=== PATIENT | male | born 1965 | race Caucasian/White ===

== ENCOUNTER 2016-12-26 23:44 | Emergency (ER) | payer OTHER ==
[~2016-12-26] VITALS: Ht 188 cm; Wt 96.7 kg
[~2016-12-26 23:44] MED LIST: CEPH500C3 PO; Z.0.NO CURRENT MEDS
[2016-12-26 23:48] VITALS: BP 203/108; PULSE 72; RESP 16; TEMP 98.3; O2SAT 98
--- NOTE | 2016-12-27 00:11 | PD ---
HPI Chief Complaint: Back/ Neck Pain or Injury Time Seen by Provider: 23:56 Travel History International Travel<30 days: No Contact w/Intl Traveler<30days: No Traveled to known affect area: No History of Present Illness HPI This is a 51-year-old male who presents to the emergency department with severe pain starting in his right upper back radiating to the neck and down his right arm feeling numbness and tingling down his right arm, constant ever since the middle the day today. He says the pain makes him nauseous and sweaty. He's never had pain like this before. He was moving furniture several days ago but his pain started just today. His daughter is a massage therapist and tried to help him but his pain is only getting worse and he's been very fidgety and uncomfortable. PFSH Past Medical History Medical History: Denies Significant Hx Diminished Hearing: No Tetanus Vaccination: > 5 Years Influenza Vaccination: No Past Surgical History Other Surgery: Yes (left thumb reattachment) Social History Alcohol Use: No Tobacco Use: Yes (1 PPD) Substance Use: No Allergies-Medications (Allergen,Severity, Reaction): Coded Allergies: No Known Allergies (Verified , 12/26/16) Reported Meds & Prescriptions Reported Meds & Active Scripts Active Review of Systems Except as stated in HPI: all other systems reviewed are Neg Physical Exam Narrative GENERAL: Uncomfortable appearing. SKIN: Focused skin assessment warm and dry. HEAD: Atraumatic. Normocephalic. EYES: Pupils equal and round. No injection or drainage. ENT: Moist mucous membranes NECK: Trachea midline. CARDIOVASCULAR: Regular rate and rhythm. No murmur appreciated. 2+ bilateral radial pulses with normal capillary refill. RESPIRATORY: Clear to auscultation. Breath sounds equal bilaterally. GASTROINTESTINAL: Abdomen soft, non-tender, nondistended. MUSCULOSKELETAL: Tender to palpation over the right trapezius muscle NEUROLOGICAL: Awake and alert. No obvious cranial nerve deficits. Moving all extremities. PSYCHIATRIC: Appropriate mood and affect; insight and judgment normal. Data Data Last Documented VS Vital Signs Date Time Temp Pulse Resp B/P (MAP) Pulse Ox O2 Delivery O2 Flow Rate FiO2 12/27/16 01:44 18 12/26/16 23:48 98.3 72 203/108 (139) 98 Orders Orders Complete Blood Count With Diff (12/27/16 00:04) Comprehensive Metabolic Panel (12/27/16 00:04) Electrocardiogram (12/27/16 ) Troponin I (12/27/16 00:04) Cta Thor Abd Aorta W Iv C W3d (12/27/16 ) Morphine Inj (Morphine Inj) (12/27/16 00:15) ^ Insert Iv (12/27/16 00:04) Iohexol 350 Inj (Omnipaque 350 Inj) (12/27/16 00:48) Morphine Inj (Morphine Inj) (12/27/16 01:00) Ketorolac Inj (Toradol Inj) (12/27/16 01:00) Methylprednisolone So Succ Inj (Solumedr (12/27/16 01:15) Labs Laboratory Tests Test 12/27/16 00:20 White Blood Count 10.0 TH/MM3 Red Blood Count 5.26 MIL/MM3 Hemoglobin 15.6 GM/DL Hematocrit 46.9 % Mean Corpuscular Volume 89.2 FL Mean Corpuscular Hemoglobin 29.7 PG Mean Corpuscular Hemoglobin Concent 33.3 % Red Cell Distribution Width 13.1 % Platelet Count 224 TH/MM3 Mean Platelet Volume 9.4 FL Neutrophils (%) (Auto) 61.7 % Lymphocytes (%) (Auto) 25.9 % Monocytes (%) (Auto) 9.1 % Eosinophils (%) (Auto) 2.8 % Basophils (%) (Auto) 0.5 % Neutrophils # (Auto) 6.1 TH/MM3 Lymphocytes # (Auto) 2.6 TH/MM3 Monocytes # (Auto) 0.9 TH/MM3 Eosinophils # (Auto) 0.3 TH/MM3 Basophils # (Auto) 0.1 TH/MM3 CBC Comment DIFF FINAL Differential Comment Blood Urea Nitrogen 16 MG/DL Creatinine 0.81 MG/DL Random Glucose 123 MG/DL Total Protein 7.4 GM/DL Albumin 4.0 GM/DL Calcium Level 8.4 MG/DL Alkaline Phosphatase 88 U/L Aspartate Amino Transf (AST/SGOT) 7 U/L Alanine Aminotransferase (ALT/SGPT) 23 U/L Total Bilirubin 0.3 MG/DL Sodium Level 140 MEQ/L Potassium Level 4.0 MEQ/L Chloride Level 108 MEQ/L Carbon Dioxide Level 26.7 MEQ/L Anion Gap 5 MEQ/L Estimat Glomerular Filtration Rate 100 ML/MIN Troponin I LESS THAN 0.02 NG/ML MDM Medical Decision Making Medical Screen Exam Complete: Yes Emergency Medical Condition: Yes Interpretation(s) Afebrile, no tachycardia, hypertensive No leukocytosis Electrolytes are reassuring Troponin is normal Last 24 hours Impressions Aorta CTA 12/27/16 0000 Signed Impressions: Service Date/Time: December 00:28 - CONCLUSION: 1. No thoracic or abdominal aortic aneurysm/dissection. 2. Numerous bilateral renal densities likely cysts although there are several small indeterminate lesions bilaterally. 3. Minimal groundglass densities in the lung likely atelectasis. Tristan Trujillo MD Differential Diagnosis Cervical radiculopathy, herniated disc, muscle spasm, aortic dissection Narrative Course This is a 51-year-old male who presents to the emergency department with neck and upper back pain that radiates to the right arm. He is very uncomfortable on exam and was quite hypertensive. I was concerned for aortic dissection. Labs and CT were obtained which were reassuring. I suspect the patient's pain is musculoskeletal. He was given IV steroids, Toradol and morphine and he feels much better. He will be discharged on an anti-inflammatory and prednisone and can follow-up with the primary care physician as an outpatient. Diagnosis Primary Impression: Musculoskeletal back pain Patient Instructions: General Instructions Additional Instructions: If you develop weakness of your legs, difficulty walking, numbness of your legs or your genital or rectal area, loss of your bowel or bladder, or difficulty urinating return to the emergency department immediately. Followup with your primary care physician in one week if your symptoms have not improved. Med/Other Pt SpecificInfo: Prescription(s) given Scripts Ranitidine (Ranitidine) 150 Mg Tab 150 MG PO BID for Heartburn Management, #60 TAB 0 Refills Prov: Abby Catherine MD 12/27/16 Cyclobenzaprine (Flexeril) 10 Mg Tab 10 MG PO TID Y for PAIN SCALE 4 TO 10, #15 TAB 0 Refills Prov: Abby Catherine MD 12/27/16 Prednisone (48) 10 mg tab Dose Pack (Prednisone (48) 10 mg tab Dose Pack) 10 Mg Dspk 10 MG PO DIRECTED for Inflammation, #1 DSPK 0 Refills Prov: Abby Catherine MD 12/27/16 Naproxen (Naproxen) 500 Mg Tab 500 MG PO BID Y for PAIN SCALE 4 TO 10, #20 TAB 0 Refills Prov: Abby Catherine MD 12/27/16 Disposition: 01 DISCHARGE HOME Condition: Stable Abby Catherine MD Dec 27, 2016 00:11
[2016-12-27] MEDS ORDERED: MORPHINE SULFATE 4 MG/ML INJ IV PUSH ONE ×2 (00:15)
[2016-12-27 00:42] LABS: AUTOMATED NEUTROPHIL # 6.1 TH/MM3 (1.8-7.7); BASOPHIL # 0.1 TH/MM3 (0-0.2); BASOPHIL % 0.5 % (0.0-2.0); EOSINOPHIL # 0.3 TH/MM3 (0-0.4); EOSINOPHIL % 2.8 % (0.0-4.0); HEMATOCRIT 46.9 % (39.0-51.0); HEMOGLOBIN 15.6 GM/DL (13.0-17.0); LYMPH % 25.9 % (9.0-44.0); LYMPHOCYTE # 2.6 TH/MM3 (1.0-4.8); MEAN CELL VOLUME 89.2 FL (80.0-100.0); MEAN CORPUSCULAR HEMOGLOBIN 29.7 PG (27.0-34.0); MEAN CORPUSCULAR HGB CONC 33.3 % (32.0-36.0); MEAN PLATELET VOLUME 9.4 FL (7.0-11.0); MONO % 9.1 % (0.0-8.0); MONOCYTE # 0.9 TH/MM3 (0-0.9); NEUT % 61.7 % (16.0-70.0); PLATELET COUNT 224 TH/MM3 (150-450); RED BLOOD COUNT 5.26 MIL/MM3 (4.50-5.90); RED CELL DISTRIBUTION WIDTH 13.1 % (11.6-17.2)
[2016-12-27 00:47] LABS: CHLORIDE 108 MEQ/L (98-107); SODIUM (NA) 140 MEQ/L (136-145)
[2016-12-27] MEDS ORDERED: IOHEXOL 350 MG/ML 10 ML VIAL (for RAD DIAG) IVCONTRAST ONE ×2 (00:48)
[2016-12-27 00:50] LABS: CALCIUM 8.4 MG/DL (8.5-10.1)
[2016-12-27 00:51] LABS: BICARBONATE 26.7 MEQ/L (21.0-32.0); BLOOD UREA NITROGEN 16 MG/DL (7-18); GLUCOSE,RANDOM 123 MG/DL (74-106)
[2016-12-27 00:54] LABS: ALT (GPT) 23 U/L (12-78); AST (GOT) 7 U/L (15-37); CREATININE 0.81 MG/DL (0.60-1.30); GLOMERULAR FILTRATION RATE 100 ML/MIN (>89)
[2016-12-27 00:56] LABS: TOTAL BILIRUBIN ADULT 0.3 MG/DL (0.2-1.0); TOTAL PROTEIN 7.4 GM/DL (6.4-8.2)
[2016-12-27 00:57] LABS: ALKALINE PHOSPHATASE 88 U/L (45-117)
[2016-12-27 00:59] LABS: TROPONIN I LESS THAN 0.02 NG/ML (0.02-0.05)
[2016-12-27] MEDS ORDERED: MORPHINE SULFATE 8 MG/ML INJ IV PUSH ONE ×2 (01:00)
[2016-12-27] MEDS ORDERED: KETOROLAC TROMETHAMINE 30 MG/ML (IVP) VIAL IV PUSH ONE ×2 (01:00)
--- NOTE | 2016-12-27 01:04 | RADRPT ---
EXAM DATE/TIME: 12/27/2016 00:28 [facility] COMPARISON: No previous studies available for comparison. INDICATIONS : Back pain and right arm pain. IV CONTRAST: 100 cc Omnipaque 350 (iohexol) IV RADIATION DOSE: 18.87 CTDIvol (mGy) MEDICAL HISTORY : None SURGICAL HISTORY : None. ENCOUNTER: Initial ACUITY: 1 day PAIN SCALE: 7/10 LOCATION: Right back/arm TECHNIQUE: Volumetric scanning was performed using a multi-row detector CT scanner. The data was post processed with a variety of visualization algorithms including full volume maximum intensity projection, multi -planar sliding thin slab reformation, curved planar reformation, and surface rendering techniques. Using automated exposure control and adjustment of the mA and/or kV according to patient size, radiat ion dose was kept as low as reasonably achievable to obtain optimal diagnostic quality images. DICOM format image data is available electronically for review and comparison. FINDINGS: LUNGS: There is no consolidation or pneumothorax. Minimal scattered groundglass densities. No concerning pu lmonary nodule is visualized. No pleural fluid is present. MEDIASTINUM: No abnormally enlarged lymph nodes by CT criteria. No axillary or hilar abnormalities are identified. ABDOMEN: The liver and spleen are free of focal defects. The gallbladder and pancreas demonstrate no abnormali ty. The adrenal glands are normal. The kidneys demonstrate no evidence of solid renal mass or hydrone phrosis. There are multiple low-density lesions involving the left kidney likely cysts the largest me asuring 4.6 cm. There are 2 intermediate lesions along the left mid kidney and lower pole measuring 1 5 and 12 mm. One is seen involving the right lower pole measuring 12 mm. No free fluid or abdominal m asses are identified. No para-aortic adenopathy is seen. PELVIS: No evidence of free fluid or pelvic mass. No abnormally enlarged inguinal or retroperitoneal lymph no maria guadalupe are present. The bladder is unremarkable. THORACIC AORTA: The thoracic aortic root is normal with normal branching of the great vessels. There is no evidence of aneurysm or dissection. ABDOMINAL AORTA: The aorta is normal in caliber without aneurysm or dissection. The renal arteries are patent bilater ally. The proximal celiac and superior mesenteric arteries are patent and normal in diameter. PELVIC VESSELS: The internal iliac and external iliac vessels are patent without aneurysm or stenosis. CONCLUSION: 1. No thoracic or abdominal aortic aneurysm/dissection. 2. Numerous bilateral renal densities likely cysts although there are several small indeterminate les ions bilaterally. 3. Minimal groundglass densities in the lung likely atelectasis. Tristan Trujillo MD on December 27, 2016 at 0:56 Board Certified Radiologist. This report was verified electronically.
[2016-12-27] MEDS ORDERED: methylPREDNISolone SOD SUCC 125 MG/2 ML VIAL IV PUSH ONE ×2 (01:15)
[2016-12-27 01:50] VITALS: BP 194/108; PULSE 70; RESP 16; O2SAT 16; O2SAT 99
[2016-12-27] MEDS ORDERED: NAPR500T PO ×2 (01:50)
[2016-12-27] MEDS ORDERED: PRED10PA2 PO ×2 (01:50)
[2016-12-27] MEDS ORDERED: RANI150T PO ×2 (01:50)
[2016-12-27] MEDS ORDERED: CYCL1TAB29 PO ×2 (01:50)
--- NOTE | 2016-12-27 14:50 | EKG ---
Date Performed: 12/27/2016 Time Performed: 00:12:04 PTAGE: 51 years EKG: Sinus rhythm NORMAL ECG NO PREVIOUS TRACING DOCTOR: Neris Martin Interpretating Date/Time 12/27/2016 14:45:34
--- NOTE | 2016-12-27 14:50 | EKG ---
Date Performed: 12/27/2016 Time Performed: 00:12:04 PTAGE: 51 years EKG: Sinus rhythm NORMAL ECG NO PREVIOUS TRACING DOCTOR: Neris Martin Interpretating Date/Time 12/27/2016 14:45:34
--- NOTE | 2016-12-27 14:50 | EKG ---
Date Performed: 12/27/2016 Time Performed: 00:12:04 PTAGE: 51 years EKG: Sinus rhythm NORMAL ECG NO PREVIOUS TRACING DOCTOR: Neris Martin Interpretating Date/Time 12/27/2016 14:45:34
== END 2016-12-27 02:14 | disposition home or self-care (01) ==
LOC: PHED 23:44
DX: M54.9 Dorsalgia, unspecified (principal); M79.621 Pain in right upper arm; R20.0 Anesthesia of skin; R11.0 Nausea; Z72.0 Tobacco use
CPT/HCPCS: 71275; 74174; 80053; 84484; 85025; 93005; 96374; 96375; 99285; J1885; J2270; J2930; Q9967